=== PATIENT | male | born 1955 | race Caucasian/White ===

== ENCOUNTER 2018-12-08 16:33 | Emergency (ER) | payer OTHER ==
[~2018-12-08] VITALS: Ht 188 cm; Wt 104.3 kg
[2018-12-08] MEDS ORDERED: HYDR1TAB94 PO (17:35)
== END 2018-12-08 17:56 | disposition home or self-care (01) ==
LOC: ER 16:33
DX: S83.91XA Sprain of unspecified site of right knee, initial encounter (principal); X50.9XXA Other and unspecified overexertion or strenuous movements or postures, initial encounter; Y99.0 Civilian activity done for income or pay; F17.200 Nicotine dependence, unspecified, uncomplicated
CPT/HCPCS: 99283

== ENCOUNTER 2019-07-15 07:15 | Day surgery (SDC) | payer OTHER ==
[~2019-07-15] VITALS: Ht 188 cm; Wt 132.1 kg
[~2019-07-15 07:15] MED LIST: HYDR1TAB94 PO
--- NOTE | 2019-07-15 08:59 | NUR ---
07/15/19 0859 Jose R Ye ABRAIASTRID TO LATERAL RIGHT KNEE. RED BLISTER BETWEEN SHOULDER BLADES. FLORENTINO MARQUES.
--- NOTE | 2019-07-15 13:02 | NUR ---
07/15/19 1302 Shannan Sanchez SPOKE TO PT ON THE PHONE AFTER DISCHARGE. INFORMED PT OF ORDER FROM DR. RICK. ASPIRIN EC 325 MG DAILY FOR 14 DAYS. PT VERBALIZES UNDERSTANDING.
== END 2019-07-15 10:33 | disposition home or self-care (01) ==
LOC: ORSCSDS 07:15
PROVIDERS: Orthopaedic Surgery
PROC: 0SBC4ZZ Excision of Right Knee Joint, Percutaneous Endoscopic Approach (ICD-10-PCS; principal; 2019-07-15 08:45)
DX: S83.241A Other tear of medial meniscus, current injury, right knee, initial encounter (principal); M94.261 Chondromalacia, right knee; M65.9 Synovitis and tenosynovitis, unspecified; E66.01 Morbid (severe) obesity due to excess calories; Z68.37 Body mass index [BMI] 37.0-37.9, adult
CPT/HCPCS: J0690; J1100; J1885; J2250; J2405; J2704; J3010; J7120

== ENCOUNTER → 2021-06-24 | Outpatient (CLI) | payer OTHER | END | disposition home or self-care (01) | LOC: LAB SHORT 15:11 → LAB 15:11 | DX: R35.1 Nocturia (principal) | CPT/HCPCS: 87077; 87086; 87186 ==

== ENCOUNTER → 2021-07-17 | Outpatient (CLI) | payer OTHER | END | disposition home or self-care (01) | LOC: LAB 16:19 → LAB SHORT 16:19 | DX: N39.0 Urinary tract infection, site not specified (principal) | CPT/HCPCS: 87077; 87086; 87186 ==

== ENCOUNTER 2024-09-26 18:02 | Emergency (ER) | payer OTHER ==
[~2024-09-26] VITALS: Ht 185.4 cm; Wt 61.2 kg
[~2024-09-26 18:02] MED LIST changes: +IBUP400 PO; +TAMS.4ER PO
[2024-09-26 19:12] LABS: BASOPHILS ABSOLUTE AUTO 0.03 K/mm3 (0.00-0.23); BASOPHILS PERCENT AUTO 0 % (0-2); EOSINOPHILS ABSOLUTE AUTO 0.01 K/mm3 (0.00-0.68); EOSINOPHILS PERCENT AUTO 0 % (0-6); Hematocrit 42.4 % (37.0-53.0); Hemoglobin 14.1 g/dL (13.5-17.5); IMMATURE GRAN ABSOLUTE AUTO 0.04 K/mm3 (0.00-0.10); IMMATURE GRAN PERCENT AUTO 0 % (0-1); LYMPHOCYTES ABSOLUTE AUTO 1.00 K/mm3 (0.84-5.20); LYMPHOCYTES PERCENT AUTO 10 % (21-46); MONOCYTES ABSOLUTE AUTO 0.77 K/mm3 (0.16-1.47); MONOCYTES PERCENT AUTO 7 % (4-13); Mean Corpuscular HGB Conc 33.3 g/dL (31.5-36.5); Mean Corpuscular Volume 85 fL (80-100); NEUTROPHILS ABSOLUTE AUTO 8.71 K/mm3 (1.96-9.15); NEUTROPHILS PERCENT AUTO 82 % (41-73); NRBC ABSOLUTE 0.00 K/mm3 (0.00-0.02); NRBC Auto 0.0 /100 WBC (0.0-0.2); Platelet Count 390 K/mm3 (150-400); RDW Coefficient Variation 13.3 % (11.7-14.2); RDW Standard Deviation 41.1 fL (35.1-46.3)
[2024-09-26 19:30] LABS: Alanine Aminotransfer (ALT/SGP 18.0 U/L (12-78); Albumin, Blood 3.4 g/dL (3.4-5.0); Albumin/Globulin Ratio 0.8 (0.8-1.8); Anion Gap 10.0 mmol/L (3-11); Aspartate Aminotrans (AST/SGOT 130.0 U/L (12-37); Bilirubin, Total 0.5 mg/dL (0.1-1.0); Blood Urea Nitrogen 15.0 mg/dL (8-24); CO2, Blood 26.0 mmol/L (21-32); Calcium, Blood 13.0 mg/dL (8.5-10.1); Chloride, Blood 99.0 mmol/L (98-108); Creatinine, Blood 0.73 mg/dL (0.60-1.20); Globulin, Blood 4.4 g/dL (2.2-4.0); Glucose, Blood 87.0 mg/dL (70-99); Potassium, Blood 4.2 mmol/L (3.5-5.5); Sodium, Blood 131.0 mmol/L (136-145); Total Protein, Blood 7.8 g/dL (6.4-8.2)
[2024-09-26 23:02] LABS: Prothrombin Time Results 12.1 Sec (9.7-11.5)
[2024-09-26] MEDS ORDERED: OMEP20ER PO (23:12)
[2024-09-26] MEDS ORDERED: ROSUVASTATIN CAL5 MG PO (23:12)
[2024-09-26] MEDS ORDERED: SPIR50 PO (23:33)
[2024-09-26 23:50] VITALS: BP 124/75
== END 2024-09-26 23:50 | disposition home or self-care (01) ==
LOC: ER 18:02
PROVIDERS: Emergency Medicine; Student in an Organized Health Care Education/Training Program
DX: C22.8 Malignant neoplasm of liver, primary, unspecified as to type (principal); R18.0 Malignant ascites
CPT/HCPCS: 71046; 80053; 83690; 83880; 84484; 85025; 85610; 85730; 93005; 93010; 93971; 99285-25

== ENCOUNTER 2024-10-14 17:33 | Inpatient (IN) | payer MEDICARE, OTHER ==
[~2024-10-14] VITALS: Ht 188 cm; Wt 73.0 kg
[~2024-10-14 17:33] MED LIST changes: +AMOCLA875 PO; +OMEP20ER PO; +ROSUVASTATIN CAL5 MG PO; +SPIR50 PO
[2024-10-14 18:25] LABS: pH Blood Venous 7.46 (7.34-7.37)
[2024-10-14 18:27] LABS: BASOPHILS ABSOLUTE AUTO 0.02 K/mm3 (0.00-0.23); BASOPHILS PERCENT AUTO 0 % (0-2); EOSINOPHILS ABSOLUTE AUTO 0.02 K/mm3 (0.00-0.68); EOSINOPHILS PERCENT AUTO 0 % (0-6); Hematocrit 37.1 % (37.0-53.0); Hemoglobin 12.5 g/dL (13.5-17.5); IMMATURE GRAN ABSOLUTE AUTO 0.02 K/mm3 (0.00-0.10); IMMATURE GRAN PERCENT AUTO 0 % (0-1); LYMPHOCYTES ABSOLUTE AUTO 0.65 K/mm3 (0.84-5.20); LYMPHOCYTES PERCENT AUTO 8 % (21-46); MONOCYTES ABSOLUTE AUTO 0.60 K/mm3 (0.16-1.47); MONOCYTES PERCENT AUTO 7 % (4-13); Mean Corpuscular HGB Conc 33.7 g/dL (31.5-36.5); Mean Corpuscular Volume 84 fL (80-100); NEUTROPHILS ABSOLUTE AUTO 7.25 K/mm3 (1.96-9.15); NEUTROPHILS PERCENT AUTO 85 % (41-73); NRBC ABSOLUTE 0.00 K/mm3 (0.00-0.02); NRBC Auto 0.0 /100 WBC (0.0-0.2); Platelet Count 258 K/mm3 (150-400); RDW Coefficient Variation 13.9 % (11.7-14.2); RDW Standard Deviation 42.5 fL (35.1-46.3)
[2024-10-14 19:00] LABS: Thyroid Stimulating Hormone 2.640 uIU/mL (0.360-4.800)
[2024-10-14 19:10] LABS: Alanine Aminotransfer (ALT/SGP 13 U/L (12-78); Albumin, Blood 2.9 g/dL (3.4-5.0); Albumin/Globulin Ratio 0.8 (0.8-1.8); Anion Gap 11 mmol/L (3-11); Aspartate Aminotrans (AST/SGOT 117 U/L (12-37); Bilirubin, Total 0.6 mg/dL (0.1-1.0); Blood Urea Nitrogen 20 mg/dL (8-24); CO2, Blood 27 mmol/L (21-32); Calcium, Blood 12.9 mg/dL (8.5-10.1); Chloride, Blood 100 mmol/L (98-108); Creatinine, Blood 0.87 mg/dL (0.60-1.20); Globulin, Blood 3.6 g/dL (2.2-4.0); Glucose, Blood 77 mg/dL (70-99); Potassium, Blood 3.5 mmol/L (3.5-5.5); Sodium, Blood 134 mmol/L (136-145); Total Protein, Blood 6.5 g/dL (6.4-8.2)
[2024-10-14 19:18] LABS: Ethanol (Alcohol), Blood, Med <3 mg/dL
[2024-10-14 19:48] LABS: Source, Urine Clean Catch
[2024-10-14 20:01] LABS: Bilirubin, Urine Neg (Neg); Color, Urine Yellow (P-Yellow); Glucose Qualitative, Urine Neg (Neg); Ketones, Urine 1+ (Neg); Leukocyte Esterase, Urine 2+ (Neg); Protein, Urine 1+ (Neg); Specific Gravity, Urine 1.020 (1.003-1.022); Urobilinogen, Urine NORM (Normal)
[2024-10-14 20:12] LABS: Red Blood Cells, Urine 0-2 /hpf (0-2)
[2024-10-14 20:24] LABS: U Amphetamine Screen Not Detected; U Barbituate Screen Not Detected; U Benzodiazapine Screen Not Detected; U Buprenorphine Screen Not Detected; U Cannabinoids Screen DETECTED; U Cocaine Screen Not Detected; U Methadone Screen Not Detected; U Methamphetamine Screen Not Detected; U Opiates Screen Not Detected; U Oxycodone Screen Not Detected; U Phencyclidine Screen Not Detected
[2024-10-14] MEDS ORDERED: CefTRIAXone Sodium 1,000 MG in NS 100 ML IV ONE (20:35)
[2024-10-14] MEDS ORDERED: NS 1,000 ML IV SCH (22:50)
[2024-10-14] MEDS ORDERED: Ondansetron HCl 2 MG / ML 2ML Vial IV PRN (22:50)
[2024-10-14] MEDS ORDERED: Enoxaparin 40 MG/0.4 ML SYR SC SCH (23:00)
[2024-10-14 23:30] VITALS: BP 117/95
--- NOTE | 2024-10-14 23:41 | NUR ---
PT ARRIVED TO 310 FROM ED AT 2323. NS STARTED AT 75 ML/HR AND BLOOD THINNER SHOT GIVEN AT THIS TIME. CALL LIGHT GIVEN TO PT AND INSTRUCTIONS GIVEN ON HOW TO USE IT. WILL GIVE REPORT TO PRIMARY RN UPON HER RETURN.
[2024-10-15 00:12] LABS: Prothrombin Time Results 12.2 Sec (9.7-11.5)
[2024-10-15 04:02] VITALS: BP 98/73
[2024-10-15] MEDS ORDERED: ZINC OXIDE/PETROLATUM, YELLOW 1 APPLIC/71 GM PASTE TOP PRN ×2 (04:55)
[2024-10-15 04:58] LABS: BASOPHILS ABSOLUTE AUTO 0.02 K/mm3 (0.00-0.23); BASOPHILS PERCENT AUTO 0 % (0-2); EOSINOPHILS ABSOLUTE AUTO 0.01 K/mm3 (0.00-0.68); EOSINOPHILS PERCENT AUTO 0 % (0-6); Hematocrit 40.4 % (37.0-53.0); Hemoglobin 13.4 g/dL (13.5-17.5); IMMATURE GRAN ABSOLUTE AUTO 0.03 K/mm3 (0.00-0.10); IMMATURE GRAN PERCENT AUTO 0 % (0-1); LYMPHOCYTES ABSOLUTE AUTO 0.74 K/mm3 (0.84-5.20); LYMPHOCYTES PERCENT AUTO 9 % (21-46); MONOCYTES ABSOLUTE AUTO 0.66 K/mm3 (0.16-1.47); MONOCYTES PERCENT AUTO 8 % (4-13); Mean Corpuscular HGB Conc 33.2 g/dL (31.5-36.5); Mean Corpuscular Volume 85 fL (80-100); NEUTROPHILS ABSOLUTE AUTO 6.51 K/mm3 (1.96-9.15); NEUTROPHILS PERCENT AUTO 82 % (41-73); NRBC ABSOLUTE 0.00 K/mm3 (0.00-0.02); NRBC Auto 0.0 /100 WBC (0.0-0.2); Platelet Count 260 K/mm3 (150-400); RDW Coefficient Variation 13.7 % (11.7-14.2); RDW Standard Deviation 42.5 fL (35.1-46.3)
[2024-10-15 05:27] LABS: Alanine Aminotransfer (ALT/SGP 12.0 U/L (12-78); Albumin, Blood 3.0 g/dL (3.4-5.0); Albumin/Globulin Ratio 0.8 (0.8-1.8); Anion Gap 8.0 mmol/L (3-11); Aspartate Aminotrans (AST/SGOT 123.0 U/L (12-37); Bilirubin, Total 0.6 mg/dL (0.1-1.0); Blood Urea Nitrogen 17.0 mg/dL (8-24); CO2, Blood 29.0 mmol/L (21-32); Calcium, Blood 13.1 mg/dL (8.5-10.1); Chloride, Blood 101.0 mmol/L (98-108); Creatinine, Blood 0.84 mg/dL (0.60-1.20); Globulin, Blood 3.8 g/dL (2.2-4.0); Glucose, Blood 70.0 mg/dL (70-99); Potassium, Blood 3.4 mmol/L (3.5-5.5); Sodium, Blood 135.0 mmol/L (136-145); Total Protein, Blood 6.8 g/dL (6.4-8.2)
[2024-10-15] MEDS ORDERED: Magnesium Hydroxide Conc 10 ML UDC PO PRN (05:35)
[2024-10-15] MEDS ORDERED: Calcitonin Salmon 200 IU/ML 2ML Vial SC SCH (06:17)
--- NOTE | 2024-10-15 06:19 | NUR ---
SHIFT SUMMARY PT ARRIVED FROM ER AROUND 2345. BREAK NURSE HELPED PT GET SETTLED AND ORIENTED TO ROOM. NO C/O PAIN. NS INFUSING 2 75ml/hr. PT REPORTS VERY LITTLE PO INTAKE AND NO BM FOR SEVERAL WEEKS. PT HAD RED AREA ON COCCYX AND SMALL OPEN AREA ON UPPER SPINE. PIC TAKEN AND DR NOTIFIED WOUND CARE ORDERS PLACED. FOAM DRESSING IN PLACE. REYNOSO IN PLACE AND DRAINING TO GRAVITY. BED ALARM ON. BED IN LOWEST POSITION AND CALL LIGHT IN REACH.
[2024-10-15 07:15] VITALS: BP 108/80
[2024-10-15] MEDS ORDERED: NS 1,000 ML IV SCH (12:20)
--- NOTE | 2024-10-15 12:22 | NUR ---
DR PARHAM ROUNDING THIS AM, ORDERED CONTINUOUS NS AT 150. STATED HE IS GOING TO CALL FOR UPDATES PATIENT IS POOR HISTORIAN.
[2024-10-15 12:55] LABS: Anion Gap 12.0 mmol/L (3-11); Blood Urea Nitrogen 16.0 mg/dL (8-24); CO2, Blood 24.0 mmol/L (21-32); Calcium, Blood 13.0 mg/dL (8.5-10.1); Chloride, Blood 103.0 mmol/L (98-108); Creatinine, Blood 0.8 mg/dL (0.60-1.20); Glucose, Blood 62.0 mg/dL (70-99); Potassium, Blood 4.0 mmol/L (3.5-5.5); Sodium, Blood 135.0 mmol/L (136-145)
[2024-10-15] MEDS ORDERED: ACET500 PO (14:58)
[2024-10-15 15:32] VITALS: BP 110/79
[2024-10-15 17:12] LABS: Anion Gap 9.0 mmol/L (3-11); Blood Urea Nitrogen 16.0 mg/dL (8-24); CO2, Blood 26.0 mmol/L (21-32); Calcium, Blood 12.0 mg/dL (8.5-10.1); Chloride, Blood 106.0 mmol/L (98-108); Creatinine, Blood 0.71 mg/dL (0.60-1.20); Glucose, Blood 87.0 mg/dL (70-99); Potassium, Blood 3.7 mmol/L (3.5-5.5); Sodium, Blood 137.0 mmol/L (136-145)
--- NOTE | 2024-10-15 18:18 | NUR ---
DIET DOWNGRADED TO PUREE, PATIENT REPORTS DIFFICULTY SWALLOWING AND CHEWING SOLID FOODS. EATING MAYBE TWO BITES OF FOOD PER MEAL, SUPPLEMENTS GIVEN AND ENCOURAGED. CRUSHED MEDS APPROPRIATE. REYNOSO IN PLACE DRAINING FREELY TO GRAVITY. ACCEPTING OF FREQUENT REPOSITIONING.
[2024-10-15 19:52] VITALS: BP 113/83
[2024-10-15] MEDS ORDERED: CefTRIAXone Sodium 1,000 MG in NS 100 ML IV SCH (21:00)
[2024-10-16 00:07] VITALS: BP 125/86
--- NOTE | 2024-10-16 02:16 | NUR ---
PATIENT PULLED OUT IV x2 AND CONTINUES TO PULL ON TELE LINES. CALL PLACED TO FRANCISCO AND T.O. RECEIVED FOR SOFT RESTRAINTS FOR PATIENT SAFETY.
[2024-10-16 03:53] VITALS: BP 130/87
--- NOTE | 2024-10-16 03:57 | NUR ---
SHIFT SUMMARY: PT PLACED IN RESTRAINTS BY WOODS RIDER AT 2308. PT PULLED TWO IVS OUT AND TELLY OFF CONTINUOUSLY. IV NEEDED TO RUN NS AT 150 CONT. PT Q2 TURNED AND RESTRAINTS CHECKED EVERY 2 HOURS. PT RESTING IN BED.
[2024-10-16 07:13] VITALS: BP 132/90
--- NOTE | 2024-10-16 08:27 | NUR ---
PATIENT FOUND THIS AM IN BILATERAL WRIST RESTRAINTS. UNABLE TO PLACE EVEN ONE FINGER UNDER RESTRAINTS. L UPPER ARM FOUND TO BE EDEMATOUS, IV RUNNING NS AT 150, APPEARS TO BE INFILTRATED. PICTURE PLACED IN CHART. IV DISCONTINUED. RESTRAINTS REMOVED AND DISCONTINUED. ARM ELEVATED. PATIENT TEARFUL THIS AM MAKING STATEMENTS SUCH "IM SO SORRY FOR WHATEVER I DID, I PROMISE I WILL NEVER DO IT AGAIN, I WAS JUST CONFUSED AND FORGOT I WASN'T SUPPOSED TO PULL ON THOSE THINGS".
[2024-10-16 11:18] VITALS: BP 120/79
--- NOTE | 2024-10-16 15:12 | NUR ---
PT STATED THAT HE WAS IN THE [employer] AND WOULD LIKE TO BE RECOGNIZED A .
[2024-10-16 15:21] LABS: Anion Gap 7.0 mmol/L (3-11); Blood Urea Nitrogen 13.0 mg/dL (8-24); CO2, Blood 27.0 mmol/L (21-32); Calcium, Blood 10.8 mg/dL (8.5-10.1); Chloride, Blood 107.0 mmol/L (98-108); Creatinine, Blood 0.77 mg/dL (0.60-1.20); Glucose, Blood 124.0 mg/dL (70-99); Potassium, Blood 3.4 mmol/L (3.5-5.5); Sodium, Blood 138.0 mmol/L (136-145)
[2024-10-16 15:44] VITALS: BP 109/81
--- NOTE | 2024-10-16 16:07 | NUR ---
CALLED DR PARHAM. OKAYED FOR FIRST DOSE OF PRILOSEC NOW, PATIENT REPORTING HEARTBURN. PATIENT AND FILLED OUT POLST AND WISH TO CHANGE TO DNR STATUS. DR PARHAM OKAYED CHANGE. POLST STILL NEEDS SIGNED, IN FRONT OF CHART.
--- NOTE | 2024-10-16 18:53 | NUR ---
PATIENT VOMITING ABOUT 350ML BROWN FECAL SMELLING THIN LIQUID. CALLED DR PARHAM WHO ORDERED STRICT NPO AND ASPIRATION PRECAUTIONS TO BE FOLLOWED. STATED NOT A GOOD CANDIDATE FOR NG DUE TO CANCER MASSES. LENARD CALLED WITH UPDATE.
[2024-10-16 19:08] VITALS: BP 109/82
--- NOTE | 2024-10-16 20:28 | NUR ---
ASSUMPTION OF CARE: THIS RN ASSUMED CARE OF PATIENT. AWAKE DURING SHIFT CHANGE REPORT. SITTING UP IN BED c HOB ELEVATED. BREATHING EVEN AND UNLABORED c ROOM AIR. REYNOSO PATENT AND DRAINING URINE TO GRAVITY. MOST RECENT TELE STRIP IN CHART INTERPRETED SINUS TACH @ 101. 1:1 CLINICAL SITTER, MAX @ BEDSIDE. NS @ 150mL/hr. BED IN LOWEST POSITION. CALL LIGHT WITHIN REACH. ACUTE NEEDS MET.
[2024-10-17 00:20] VITALS: BP 124/75
[2024-10-17 04:01] VITALS: BP 114/85
[2024-10-17 05:59] LABS: Anion Gap 7.0 mmol/L (3-11); Blood Urea Nitrogen 12.0 mg/dL (8-24); CO2, Blood 25.0 mmol/L (21-32); Calcium, Blood 10.0 mg/dL (8.5-10.1); Chloride, Blood 109.0 mmol/L (98-108); Creatinine, Blood 0.78 mg/dL (0.60-1.20); Glucose, Blood 112.0 mg/dL (70-99); Potassium, Blood 3.3 mmol/L (3.5-5.5); Sodium, Blood 138.0 mmol/L (136-145)
--- NOTE | 2024-10-17 06:47 | NUR ---
END OF SHIFT SUMMARY: A&Ox2-3. PLEASANT AND COOPERATIVE WITH CARE. 1:1 SITTER AT BEDSIDE TO REDIRECT WHEN PULLING AT CORDS/LINES. DOES NOT UTILIZE CALL LIGHT AND IS IMPULSIVE, THOUGH REDIRECTABLE. CONTINENT OF BOWEL; UNABLE TO HAVE BM AFTER 2PA TO BSC. CACHECTIC AND WEAK. REYNOSO FOR ACUTE RETENTION PATENT AND DRAINING TO GRAVITY. STRICT NPO; ALL PO MEDS HELD. NS @ 150mL/hr. SLEPT MAJORITY OF SHIFT. DID REQUIRE REDIRECTION FOR SITTER TO NOT PULL AT LINES AND MAINTAIN SAFETY. STRICT NPO D/T POSSIBLE OBSTRUCTION. ONE EPISODE OF BROWN EMESIS AT 0345 FOR WHICH HE WAS MEDICATED c PRN ZOFRAN. TELE READING SINUS TACH. BED IN LOWEST POSITION, CALL LIGHT WITHIN REACH, ALL NEEDS MET. REPORT TO ONCOMING NURSE.
[2024-10-17 07:00] VITALS: BP 104/66
--- NOTE | 2024-10-17 09:00 | NUR ---
pt laying in bed on his side, sitter in room, pt is a/ox3, a bit flat, denies pain at this time, lungs are very dim t/o, resp even and unlabored, no cough noted or reported, on r/a, hrr, tele in place running sr with pvc's in 70's, trace edema noted to b/l le, ppp+2, cap refill<3 sec, vs stable, afebrile, piv site is clear and patent, infusing ns as ordered, barrow cath draing clear yellow urine, briefs in place, skin has multiple mepilex along spine and coccyx, maew, general weakness, santos, call light in reach.
[2024-10-17] MEDS ORDERED: Potassium Chl 20MEQ/Water100ML 100 ML IV STA (11:23)
[2024-10-17] MEDS ORDERED: NS 250 ML IV PRN (15:10)
[2024-10-17 16:06] VITALS: BP 113/77
--- NOTE | 2024-10-17 18:11 | NUR ---
pt was taken to radiology via rconstantino for abd xray, staying with him most of the day, and wishes to speak to Dr. Plata, he will see her in am, pt agreeable to be here, pt had one episode of nausea and vomiting, zofran effective, call light in reach.
[2024-10-17 19:45] VITALS: BP 129/83
[2024-10-17 23:52] VITALS: BP 118/80
[2024-10-18 05:37] VITALS: BP 124/87
--- NOTE | 2024-10-18 05:43 | NUR ---
END OF SHIFT SUMMARY: A&Ox2-4 WITH INTERMITTENT EPISODES OF CONFUSION. EASILY REORIENTED. EPISODE OF ANXIETY AT BEGINNING OF SHIFT WHEN UNSURE OF S LOCATION. EASILY REDIRECTED WITH PHONE CALL TO WHO WAS ABLE TO CALM HIM DOWN. LATER APOLOGIZED AND STATED HIS ALZHIEMER S MAKES IT DIFFICULT FOR HIM TO DIFFERENTIATE REALITY FROM DELUSIONS SOMETIMES. REYNOSO PATENT AND DRAINING SMALL AMOUNT OF BRADY URINE TO GRAVITY. ABD XR NEGATIVE FOR SBO. CONTINUES NPO STATUS PER PROVIDER ORDER. TELE STRIP REVIEWED AND C/W SINUS RHYTHM. UTILIZED CALL LIGHT APPROPRIATELY THIS EVENING. CONTINUES LR @ 150mL/hr. NO NAUSEA/VOMITING THIS NOTED THIS SHIFT.
[2024-10-18] MEDS ORDERED: Pantoprazole Sodium 40 MG Injection IV SCH (06:00)
[2024-10-18 06:35] LABS: BASOPHILS ABSOLUTE AUTO 0.02 K/mm3 (0.00-0.23); BASOPHILS PERCENT AUTO 0 % (0-2); EOSINOPHILS ABSOLUTE AUTO 0.03 K/mm3 (0.00-0.68); EOSINOPHILS PERCENT AUTO 0 % (0-6); Hematocrit 38.7 % (37.0-53.0); Hemoglobin 12.8 g/dL (13.5-17.5); IMMATURE GRAN ABSOLUTE AUTO 0.04 K/mm3 (0.00-0.10); IMMATURE GRAN PERCENT AUTO 0 % (0-1); LYMPHOCYTES ABSOLUTE AUTO 0.69 K/mm3 (0.84-5.20); LYMPHOCYTES PERCENT AUTO 7 % (21-46); MONOCYTES ABSOLUTE AUTO 0.78 K/mm3 (0.16-1.47); MONOCYTES PERCENT AUTO 8 % (4-13); Mean Corpuscular HGB Conc 33.1 g/dL (31.5-36.5); Mean Corpuscular Volume 85 fL (80-100); NEUTROPHILS ABSOLUTE AUTO 8.15 K/mm3 (1.96-9.15); NEUTROPHILS PERCENT AUTO 84 % (41-73); NRBC ABSOLUTE 0.00 K/mm3 (0.00-0.02); NRBC Auto 0.0 /100 WBC (0.0-0.2); Platelet Count 230 K/mm3 (150-400); RDW Coefficient Variation 14.5 % (11.7-14.2); RDW Standard Deviation 44.0 fL (35.1-46.3)
[2024-10-18 06:59] LABS: Alanine Aminotransfer (ALT/SGP 12.0 U/L (12-78); Albumin, Blood 2.5 g/dL (3.4-5.0); Albumin/Globulin Ratio 0.7 (0.8-1.8); Anion Gap 8.0 mmol/L (3-11); Aspartate Aminotrans (AST/SGOT 109.0 U/L (12-37); Bilirubin, Total 0.6 mg/dL (0.1-1.0); Blood Urea Nitrogen 13.0 mg/dL (8-24); CO2, Blood 22.0 mmol/L (21-32); Calcium, Blood 9.7 mg/dL (8.5-10.1); Chloride, Blood 111.0 mmol/L (98-108); Creatinine, Blood 0.74 mg/dL (0.60-1.20); Globulin, Blood 3.4 g/dL (2.2-4.0); Glucose, Blood 77.0 mg/dL (70-99); Magnesium, Blood 1.5 mg/dL (1.6-2.4); Phosphorus, Blood 5.0 mg/dL (2.5-4.9); Potassium, Blood 3.4 mmol/L (3.5-5.5); Sodium, Blood 138.0 mmol/L (136-145); Total Protein, Blood 5.9 g/dL (6.4-8.2)
[2024-10-18 07:32] VITALS: BP 114/81
[2024-10-18] MEDS ORDERED: Mag Sulfate 1 GM/D5% 100ML 100 ML IV STA (09:45)
[2024-10-18 11:03] VITALS: BP 109/76
--- NOTE | 2024-10-18 14:17 | NUR ---
ASSUMED CARE PT IS A/O X 3 YET A LITTLE FORGETFUL, PT MENTATION SEEMS TO BE IMPROVING THROUGHOUT THE DAY. PT QUIETLY LAYING IN BED NO C/O PAIN NO DISTRESS REYNOSO INTACT AND DRAINING CLR YELLOW. ICE GIVEN AND AWAITING MD TO ADVANCE DIET. ABD CT SHOWS LITTLE TO KNOW CHANGE AND NO BOWEL OBSTRUCTION. PT ADVANCED TO FULL LIQUID AND BRAIN WELL.
--- NOTE | 2024-10-18 14:24 | NUR ---
AMBULATION.TRANSFER PT WAS ASSISTED TO CHAIR, MINIMAL ASSISTENCE NEEDED BUT PT WAS UNSTEADY ON FEET, PT WOULD BENIFIT FROM A FWW IF AMBULATION IN ROOM.
[2024-10-18 16:41] VITALS: BP 123/73
[2024-10-18] MEDS ORDERED: Potassium Chloride 10 Meq Tablet SA PO SCH (17:00)
[2024-10-18 20:18] VITALS: BP 129/82
[2024-10-19 00:15] VITALS: BP 99/63
[2024-10-19 04:57] VITALS: BP 103/66
[2024-10-19 07:37] VITALS: BP 125/83
--- NOTE | 2024-10-19 07:53 | NUR ---
SHIFT SUMMARY AT START OF SHIFT, PT SITTING UP IN BED. HE WAS TRYING TO FIGURE OUT HOW TO CALL HIS . THIS RN HELPED PT CALL HIS , AND HE WAS ABLE TO REST PEACEFULLY AFTERWARD. PT AWAKE AND ASKING FOR TV TO BE TURNED ON SO HE CAN WATCH THE NEWS APPROX [phone]. PT HAS BEEN PLEASANT AND COOPERATIVE WITH CARE. PT WANTING TO GO HOME TO BE WITH HIS AND HIS DOGS.
[2024-10-19] MEDS ORDERED: POTA10T PO (13:28)
[2024-10-19] MEDS ORDERED: MAGNESIUM OXID400 M1 PO (13:28)
[2024-10-19] MEDS ORDERED: MIRALAX17 GM PO (13:31)
[2024-10-19] MEDS ORDERED: ZINCTRAL57 GM TOP (13:31)
--- NOTE | 2024-10-19 17:56 | NUR ---
LATE ENTRY-PT DISCHARGED HOME WITH FAMILY. HOMEHEALTH ARRANGED. ALERT AND ORIENTED X4 STAND PIVOT WITH 2 PERSON ASSIST. REYNOSO CATHETER IN PLACE AND DRAINING
== END 2024-10-19 14:45 | disposition home health service (06) | DRG 640 ==
LOC: ER 17:33 → MEDS 17:34 → ENPENDDIS 10-19 09:39 → MEDS 10-19 14:45
PROVIDERS: Emergency Medicine; Hospitalist; Internal Medicine; ADMIT Internal Medicine
DX: E83.52 Hypercalcemia (principal); E43 Unspecified severe protein-calorie malnutrition; G93.41 Metabolic encephalopathy; C22.0 Liver cell carcinoma; N39.0 Urinary tract infection, site not specified; C78.6 Secondary malignant neoplasm of retroperitoneum and peritoneum; R18.0 Malignant ascites; R64 Cachexia; Z66 Do not resuscitate; R54 Age-related physical debility; B96.1 Klebsiella pneumoniae [K. pneumoniae] as the cause of diseases classified elsewhere; R62.7 Adult failure to thrive; E87.6 Hypokalemia; E83.42 Hypomagnesemia; E86.0 Dehydration; K21.9 Gastro-esophageal reflux disease without esophagitis; E78.00 Pure hypercholesterolemia, unspecified; F17.210 Nicotine dependence, cigarettes, uncomplicated; E88.09 Other disorders of plasma-protein metabolism, not elsewhere classified; Z68.20 Body mass index [BMI] 20.0-20.9, adult; R11.13 Vomiting of fecal matter; R91.1 Solitary pulmonary nodule; Z88.8 Allergy status to other drugs, medicaments and biological substances; Z91.048 Other nonmedicinal substance allergy status; Z79.899 Other long term (current) drug therapy; Z98.890 Other specified postprocedural states
CPT/HCPCS: 36415; 51702; 70450; 71045; 74022; 74177; 80048; 80053; 80320; 81001; 82140; 82803; 83735; 83880; 84100; 84439; 84443; 85025; 85610; 92610; 93005; 93010; 96365; 96372; 96375; 99285-25; A9270; G0378; J0630; J0696; J1650; J2405; J2470; J3475; J3480; J3489; J7030; J7050; J7120; Q9967

== ENCOUNTER 2024-11-18 12:36 | Emergency (ER) | payer MEDICARE, OTHER ==
[~2024-11-18] VITALS: Ht 188 cm; Wt 59.0 kg
[~2024-11-18 12:36] MED LIST changes: +ACET500 PO; +MAGNESIUM OXID400 M1 PO; +MIRALAX17 GM PO; +POTA10T PO; +ZINCTRAL57 GM TOP
[2024-11-18] MEDS ORDERED: Ondansetron HCl 2 MG / ML 2ML Vial IV PRN (13:05)
[2024-11-18 13:38] LABS: BASOPHILS ABSOLUTE AUTO 0.01 K/mm3 (0.00-0.23); BASOPHILS PERCENT AUTO 0 % (0-2); EOSINOPHILS ABSOLUTE AUTO 0.00 K/mm3 (0.00-0.68); EOSINOPHILS PERCENT AUTO 0 % (0-6); Hematocrit 41.5 % (37.0-53.0); Hemoglobin 13.5 g/dL (13.5-17.5); IMMATURE GRAN ABSOLUTE AUTO 0.07 K/mm3 (0.00-0.10); IMMATURE GRAN PERCENT AUTO 1 % (0-1); LYMPHOCYTES ABSOLUTE AUTO 0.64 K/mm3 (0.84-5.20); LYMPHOCYTES PERCENT AUTO 6 % (21-46); MONOCYTES ABSOLUTE AUTO 0.65 K/mm3 (0.16-1.47); MONOCYTES PERCENT AUTO 6 % (4-13); Mean Corpuscular HGB Conc 32.5 g/dL (31.5-36.5); Mean Corpuscular Volume 87 fL (80-100); NEUTROPHILS ABSOLUTE AUTO 9.93 K/mm3 (1.96-9.15); NEUTROPHILS PERCENT AUTO 88 % (41-73); NRBC ABSOLUTE 0.00 K/mm3 (0.00-0.02); NRBC Auto 0.0 /100 WBC (0.0-0.2); Platelet Count 329 K/mm3 (150-400); RDW Coefficient Variation 15.9 % (11.7-14.2); RDW Standard Deviation 50.9 fL (35.1-46.3)
[2024-11-18 14:18] LABS: Alanine Aminotransfer (ALT/SGP 15.0 U/L (12-78); Albumin, Blood 2.8 g/dL (3.4-5.0); Albumin/Globulin Ratio 0.6 (0.8-1.8); Anion Gap 15.0 mmol/L (3-11); Aspartate Aminotrans (AST/SGOT 178.0 U/L (12-37); Bilirubin, Total 0.9 mg/dL (0.1-1.0); Blood Urea Nitrogen 17.0 mg/dL (8-24); CO2, Blood 20.0 mmol/L (21-32); Calcium, Blood 10.6 mg/dL (8.5-10.1); Chloride, Blood 98.0 mmol/L (98-108); Creatinine, Blood 0.66 mg/dL (0.60-1.20); Globulin, Blood 4.4 g/dL (2.2-4.0); Glucose, Blood 104.0 mg/dL (70-99); Potassium, Blood 5.4 mmol/L (3.5-5.5); Sodium, Blood 128.0 mmol/L (136-145); Total Protein, Blood 7.2 g/dL (6.4-8.2)
[2024-11-18] MEDS ORDERED: Ondansetron HCl 2 MG / ML 2ML Vial IV ONE ×2 (18:10→20:35)
[2024-11-18] MEDS ORDERED: NS 1,000 ML IV SCH (18:10)
[2024-11-18] MEDS ORDERED: [UNRECOGNIZED DRUG - OTHER] PO (18:42)
[2024-11-18] MEDS ORDERED: BISA10S PR (18:42)
[2024-11-18] MEDS ORDERED: DOCU100 PO (18:42)
[2024-11-18 20:30] LABS: Source, Urine Foley catheter
[2024-11-18 20:35] LABS: Bilirubin, Urine Neg (Neg); Glucose Qualitative, Urine Neg (Neg); Ketones, Urine 3+ (Neg); Leukocyte Esterase, Urine 3+ (Neg); Protein, Urine 3+ (Neg); Specific Gravity, Urine 1.015 (1.003-1.022); Urobilinogen, Urine 1+ (Normal)
[2024-11-18 20:45] VITALS: BP 132/99
[2024-11-18 20:46] LABS: Color, Urine Yellow (P-Yellow)
[2024-11-18 20:47] LABS: White Blood Cells, Urine 50-100 /hpf (0-5)
== END 2024-11-18 21:05 | disposition home or self-care (01) ==
LOC: ER 12:36
PROVIDERS: Emergency Medicine; Student in an Organized Health Care Education/Training Program
DX: K59.00 Constipation, unspecified (principal); R11.2 Nausea with vomiting, unspecified; C76.2 Malignant neoplasm of abdomen; K21.9 Gastro-esophageal reflux disease without esophagitis; E78.00 Pure hypercholesterolemia, unspecified; F17.200 Nicotine dependence, unspecified, uncomplicated; Z79.899 Other long term (current) drug therapy; Z88.8 Allergy status to other drugs, medicaments and biological substances
CPT/HCPCS: 51702; 74177; 80053; 81001; 83690; 85025; 87077; 87086; 87186; 96361; 96374-59; 96376; 99284-25; J2405; J7030; Q9967